=== PATIENT | male | born 1965 | race Caucasian/White ===

== ENCOUNTER → 2016-04-30 | Outpatient (CLI) | payer OTHER ==
--- NOTE | 2016-04-30 12:52 | DX ---
Left Fourth Digit, Three Views Indication: Trauma Findings: Bony alignment of the hand is anatomic. Joint space are well maintained. There is mild soft tissue swelling of the 4th digit. No fracture or foreign body. Impression: Soft tissue swelling. No evidence of fracture or foreign body.
== END ==
LOC: BMCIMAGING 12:32
PROVIDERS: ATTEND Family Medicine
DX: S69.92XA Unspecified injury of left wrist, hand and finger(s), initial encounter (principal); M79.89 Other specified soft tissue disorders; W20.8XXA Other cause of strike by thrown, projected or falling object, initial encounter

== ENCOUNTER → 2016-06-18 | Outpatient (CLI) | payer OTHER | LOC: BMCIMAGING 15:04 | PROVIDERS: ATTEND Family Medicine | DX: M25.562 Pain in left knee (principal) ==

== ENCOUNTER → 2016-07-02 | Outpatient (CLI) | payer OTHER | LOC: BMCIMAGING 09:22 | PROVIDERS: ATTEND Physician Assistant | DX: S82.145A Nondisplaced bicondylar fracture of left tibia, initial encounter for closed fracture (principal) ==

== ENCOUNTER → 2016-08-14 | Outpatient (CLI) | payer OTHER | LOC: BMCIMAGING 08:21 | PROVIDERS: ATTEND Physician Assistant | DX: S82.192D Other fracture of upper end of left tibia, subsequent encounter for closed fracture with routine healing (principal) ==

== ENCOUNTER → 2016-09-09 | Outpatient (CLI) | payer OTHER | LOC: BMCIMAGING 08:28 | PROVIDERS: ATTEND Physician Assistant | DX: S82.192D Other fracture of upper end of left tibia, subsequent encounter for closed fracture with routine healing (principal) ==

== ENCOUNTER → 2017-01-06 | Outpatient (CLI) | payer BC | LOC: FIMAGING 07:53 | PROVIDERS: ATTEND Internal Medicine | DX: R91.8 Other nonspecific abnormal finding of lung field (principal); R16.1 Splenomegaly, not elsewhere classified ==

== ENCOUNTER → 2018-06-23 | Outpatient (CLI) | payer BC | LOC: BMCIMAGING 09:30 | PROVIDERS: ATTEND Emergency Medicine | DX: R05 Cough (principal) ==